=== PATIENT | female | born 1960 | race Caucasian/White ===

== ENCOUNTER → 2022-12-13 07:50 | Outpatient (REF) | payer OTHER, SELFPAY ==
--- NOTE | 2022-12-13 07:58 | CA_ITS ---
Transthoracic Echocardiogram Patient (Last, First, Middle): Gricel Damian, Gender: Female Date of : 1960 Age: 62 Procedure Date: 12/13/2022 Procedure Type: Transthoracic Echocardiogram Location: [facility] Height: 162.56 cm Weight: 108.86 kg BSA: 2.11 m2 Heart Rate: bpm BP: 124 / 80 mmHg Java Programmer: JESSICA Referring MD: Dada Lobo MD [employer]: Luis Goodwin MD Symptoms: R00.2 Study Quality: Adequate with contrast ECG Rhythm: Sinus Conclusions: - 1. Normal LV systolic function with impaired relaxation filling pattern 2. Normal cardiac valvular Doppler 3. No gross pericardial effusion Findings Left Ventricle Normal left ventricular size, thickness, and systolic function. The visually estimated ejection fraction is between 60-65%. Spectral Doppler is indicative of an impaired relaxation filling pattern. E/E prime ratio is between 8 and 15 consistent with indeterminate filling pressures. Right Ventricle Normal right ventricular cavity size and systolic function. Atria The left atrium is normal in size. Interatrial shunt cannot be excluded. The right atrium is normal in size. Aortic Valve The aortic valve structure and function is likely normal. There is no aortic valve stenosis. There is no aortic valve regurgitation. Mitral Valve Likely normal mitral valve structure and function. There is trace mitral valve regurgitation. There is no mitral valve stenosis. Pulmonic Valve The pulmonic valve was not well visualized. Tricuspid Valve The tricuspid valve was not well visualized. Tricuspid regurgitation envelope is inadequate for calculation of right ventricular systolic pressure. Normal right atrial pressure. Great Vessels All visible segments of the aorta are normal in size. The pulmonary artery was not well visualized. Venous The inferior vena cava is normal in size and collapses greater than 50% with inspiration. Pericardium/Pleural There is no evidence of pericardial effusion. Prior Study Comparison No prior study available for comparison. Measurements 2D Linear Measurements IVSd: 1.20 0.6-0.9/0.6-1.0 cm LVIDd: 4.72 3.9-5.3/4.2-5.9 cm LVIDd Index: 2.24 2.4-3.2/2.2-3.1 cm/m2 LVIDs: 2.93 2.0-3.6 cm LVPWd: 1.08 0.7-1.1 cm LA Diam: 3.90 2.7-3.8/3.0-4.0 cm LAIDs Index: 1.85 1.5-2.3 cm/m2 LV Mass: 247.36 67-162/88-224 g LV Mass Index: 117.23 43-95/49-115 g/m2 LVOT Diam: 2.20 3.0+(-)1.3 cm 2D Systolic Function EF 4C: 60.00 >55% EF 2C: 67.10 >55% EF BiP: 63.00 >55% Mitral Valve MV Pk E: 0.51 MV PK A: 0.71 MV Decel Time: 305.00 E/A: 0.70 E'Lateral: 5.44 E'Medial: 4.24 E/E' Med: 11.90 E/E' Lat: 9.30 PHT: 89.00 MVA PHT: 2.47 Decel Dewey: 1.66 Aortic Valve AoV Pk Mckay: 1.34 AoV Mn Mckay: 0.99 AoV VTI: 0.36 AoV Pk Grad: 7.00 Aov Mn Grad: 4.00 WU Cont.VTI: 2.13 LVOT LVOT Pk Mckay: 0.82 LVOT Mn Mckay: 0.59 LVOT VTI: 0.20 LVOT Pk Grad: 3.00 LVOT Mn Grad: 2.00 LVOT Diam: 2.20 LVOT Area: 3.80 Diastolic Function MV Pk E: 0.51 MV Pk A: 0.71 E/A: 0.70 E'Medial: 4.24 E/E' Med: 11.90 E' Laterial: 5.44 E/E' Lat: 9.30 Right Ventricle TAPSE (mm): 19.80 TVS' Mckay: 13.70 Tricuspid Valve RA Press: 3.00 Great Vessels Aorta Sinus of Valsalva: 3.53 2.0-3.[address] [place]: 2.88 1.7-3.4 cm Ao Asc: 3.30 2.1-3.4 cm Updated in Other Vendor System with Status of Final Luis Goodwin MD electronically signed on 12/13/2022 2:40:51 PM with status of Final
== END ==
LOC: HO.CARD 07:50
PROVIDERS: PCP Family Medicine; Visit Provider Family Medicine
DX: R00.2 Palpitations (principal)
CPT/HCPCS: 93306; Q9957